=== PATIENT | male | born 1985 | race Caucasian/White ===

== ENCOUNTER 2019-10-02 02:19 | Emergency (ER) | payer SELFPAY ==
[2019-10-02 02:21] VITALS: BP 142/78; PULSE 65; RESP 18; TEMP 36; O2SAT 99; BMI 23.4
--- NOTE | 2019-10-02 02:38 | W.ED.EYEPROB ---
HPI - Eye Problem General: Chief complaint: Eye Problems Stated complaint: foreign body in eye Time Seen by Provider: 10/02/19 02:22 Source: patient Mode of arrival: ambulatory Limitations: no limitations History of Present Illness: HPI Narrative: 34-year-old male states he was taken a shower last night and felt like he got a foreign body in his right eye. He states he had pain since then. He states the pain is sharp in nature and is mild. Denies any change in vision. Denies any headache. Denies any fever. chief complaint: eye pain Onset (ago): hour(s) Onset description: sudden Location: right eye Eye Symptoms: pain and foreign body sensation Severity: mild Associated symptoms: Denies fever(s), headache(s), nausea, neck pain or vomiting Review of Systems Const: Denies: fever(s), chills, body aches or change in appetite Eyes: Reports: eye discomfort ENMT: Denies: throat pain or dental pain Card: Denies: chest pain Resp: Denies: dyspnea GI: Denies: abdominal pain, nausea, vomiting or diarrhea : Denies: dysuria Musc: Denies: neck pain or back pain Skin/Breast: Denies: rash Neuro: Denies: headache(s) Psych: Denies: depression Jero/Lymph: Denies: easy bruising All/Imm: Denies: urticaria PFSH ED PFSH: Social History Smoking and tobacco status: never smoked Physical Exam Const: COMMON NORMALS: no acute distress and patient oriented x3 HENMT: COMMON NORMALS: normocephalic and atraumatic HEAD & SCALP: normocephalic and atraumatic Eye: OTHER: Small abrasion to right cornea with no foreign body or ulcer Neck/C-Spine: COMMON NORMALS: supple Chest: COMMONS NORMALS: normal inspection of the chest Resp: COMMON NORMALS: normal respiratory effort Cardio: COMMON NORMALS: regular rate and regular rhythm RATE: regular rate RHYTHM: regular rhythm Neuro: COMMON NORMALS: patient oriented x3 Psych: COMMON NORMALS: mental status grossly normal and cooperative Skin: COMMON NORMALS: no rashes or lesions noted GENERAL SKIN EXAM: no rashes or lesions noted Course Vital Signs: Vital signs: Vital Signs Temperature 96.8 F L 10/02/19 02:21 Pulse Rate 65 10/02/19 02:21 Respiratory Rate 18 10/02/19 02:21 Blood Pressure 142/78 10/02/19 02:21 Pulse Oximetry 99 10/02/19 02:21 MDM - Eye Problem MDM Narrative: Medical decision making narrative: rBodie presents here with corneal abrasion to right eye. Patient has no signs of major injury or foreign body. Patient stable for discharge will place on [facility]. He is to follow-up with ophthalmology and return if worsening. Discharge Plan Discharge Patient Disposition: Home, Self-Care Clinical Impression: Corneal abrasion Qualifiers: Encounter type: initial encounter Laterality: right Qualified Code(s): S05.01XA - Injury of conjunctiva and corneal abrasion without foreign body, right eye, initial encounter Condition: Stable Prescriptions: New erythromycin 5 mg/gram (0.5 %) ointment 1 applic ophthalmic (eye) Q8H 7 Days Qty: 3.5 RF: 0 Discharge Orders: Discharge Order (Routine); Ordered 10/02/19 Ordered By: Harinder Nair Referrals: Heath Beckman MD [Physician] - 1-3 days Discharge Diet: Advance as tolerated Discharge Activity: Resume usual activity Patient Instructions: Corneal Abrasion (ED) Coding Level of Care Code 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
[2019-10-02] MEDS: tetracaine 0.5% Op Soln 4 mL Btl 1 DROP EYE-BOTH (02:46)
[2019-10-02] MEDS: fluorescein 1 mg Strip EYE-BOTH (02:46)
[2019-10-02 02:51] VITALS: BP 132/76; PULSE 70; RESP 20; O2SAT 99
--- NOTE | 2019-10-02 02:57 | PC.NURSE ---
read and agree with assessment
== END 2019-10-02 02:45 | disposition home or self-care (01) ==
PROVIDERS: Emergency Provider Emergency Medicine
DX: S05.01XA Injury of conjunctiva and corneal abrasion without foreign body, right eye, initial encounter (principal); X58.XXXA Exposure to other specified factors, initial encounter
CPT/HCPCS: 12345; 99281; 99283